=== PATIENT | male | born 1955 | race Caucasian/White ===

== ENCOUNTER 2017-07-19 06:30 | Day surgery (SDC) | payer BC ==
[~2017-07-19] VITALS: Ht 182.9 cm; Wt 95.7 kg
[2017-07-19 06:53] VITALS: BP 120/76; PULSE 51; TEMP 98
[2017-07-19] MEDS ORDERED: LIVALO4 MG PO (07:04)
[2017-07-19] MEDS ORDERED: NIACIN1000 MG PO (07:05)
[2017-07-19] MEDS ORDERED: ASPIRIN 81M81 MG/TA2 PO (07:06)
[2017-07-19 08:00] VITALS: BP 107/76; PULSE 51; TEMP 97.8
[2017-07-19 08:15] VITALS: BP 108/72; PULSE 48
[2017-07-19 08:30] VITALS: BP 114/73; PULSE 47
[2017-07-19 08:35] VITALS: BP 116/72; PULSE 48
== END 2017-07-19 08:50 | disposition home or self-care (01) ==
LOC: SDCO 06:30
DX: Z12.11 Encounter for screening for malignant neoplasm of colon (principal); Z79.82 Long term (current) use of aspirin; Z79.899 Other long term (current) drug therapy
CPT/HCPCS: OP; J2250; J3010; J7030